=== PATIENT | male | born 1950 | race Caucasian/White ===

== ENCOUNTER → 2017-04-05 13:07 | Outpatient (CLI) | payer MEDICARE, OTHER | END | disposition home or self-care (01) | LOC: D.MRI 04-04 11:00 | DX: M25.572 Pain in left ankle and joints of left foot (principal) ==

== ENCOUNTER → 2017-09-19 07:32 | Outpatient (CLI) | payer MEDICARE, OTHER | END | disposition home or self-care (01) | LOC: D.RAD 07:32 | DX: R13.10 Dysphagia, unspecified (principal) ==

== ENCOUNTER → 2018-07-17 07:59 | Outpatient (CLI) | payer MEDICARE, OTHER | END | disposition home or self-care (01) | LOC: D.HCCARDIO 07:59 | DX: I25.10 Atherosclerotic heart disease of native coronary artery without angina pectoris (principal); Z95.1 Presence of aortocoronary bypass graft ==

== ENCOUNTER 2020-12-25 15:49 | Inpatient (IN) | payer MEDICARE, OTHER ==
[2020-12-25] VITALS (9 sets, daily range): BP systolic 102–163; BP diastolic 51–93
[~2020-12-25] VITALS: Ht 172.7 cm; Wt 76.1 kg
--- NOTE | ~2020-12-25 | HEMODYNAMI ---
PATIENT:CHARLY MCCOLLUM MEDICAL RECORD: [id number] : 52 LOCATION:[facility] D.[address] [facility]# [id number] ADMISSION DATE: 12/26/20 Generatedon:19:27 Patient name: CHARLY MCCOLLUM Patient #: [id number] SSN: [id number] : 1950 Date of study: 12/27/2020 Page: Of Hemodynamic Procedure Report Patient Data Patient Demographics Procedure consent was obtained First Name: CHARLY Gender: Male Last Name: CHUN : 1950 [facility] Initial: J Age: 70 year(s) Patient #: [id number] Race: SSN: [id number] Additional ID: [id number] Contact details [address]: [address] [place] [address] State: [place] City: [place] Zip code: [address] Past Medical History Allergies Allergen Reaction Date Comments Reported Other allergy 12/27/2020 GUAFENESIN, ETODOLAC Admission Admission Data Admission Date: 12/26/2020 Admission Time: 9:14 Arrival Date: 12/27/2020 Arrival Time: 0:00 Admit Source: Other Insurance Payor: Medicare Room #: D.2113 [facility] #: [id number] Height (in.): 68 BSA: 1.86 (m2) Height (cm.): 172.72 BMI: 24.38 (kg/m2) Weight (lbs.): 160.32 Weight (kg.): 72.72 Lab Results Lab Result Date: 12/27/2020 Lab Result Time: 0:00 Biochemistry Name Units Result Min Max BUN mg/dl 10 --(-*--)-- 7 18 CK-MB ng/ml 152.4 --(----)-* 0 3.6 Creatinine mg/dl 0.9 --(-*--)-- 0.6 1.3 eGFR ml/min 88.44020 -*(----)-- 90 120 NONAFRICAN Troponin l ng/ml 23.262 --(----)-* 0 0.06 CBC Name Units Result Min Max Hematocrit % 38.8 *-(----)-- 42 54 Hemoglobin g/dl 13.5 --(*---)-- 13.5 17.5 Procedure Procedure Types Cath Procedure Diagnostic Procedure LHC Coronaries w/Grafts Aortic Root Angiography Sedation Charges Moderate Sedation 40-54 minutes Procedure Description Procedure Date Procedure Date: 12/27/2020 Procedure Start Time: 8:34 Procedure End Time: 9:21 Procedure Staff Name Function Jose M Mon MD Performing Physician Rocco Jimenez RN Nurse Dasha Olea RT Monitor Keisha Valdez RT Scrub Procedure Data Cath Procedure Fluoroscopy Diagnostic fluoroscopy Total fluoroscopy Time: 7.4 time: 7.4 min min Diagnostic fluoroscopy Total fluoroscopy dose: dose: 1417 mGy 1417 mGy Contrast Material Contrast Material Type Amount (ml) Isovue 370 156 Entry Location Entry Primary Successful Side Size Upsize Upsize Entry Closure Succes sful Closure Location (Fr) 1 (Fr) 2 (Fr) Remarks Device Remarks Femoral Right 5 Fr 6 Fr Exoseal artery Short Estimated blood loss: 5 ml Diagnostic catheters Device Type Used For End Catheter Placement MULTIPACK JL 4.0 5Fr Procedure catheter DIAGNOSTIC AR MOD 5Fr Procedure Catheter ([id number]) DIAGNOSTIC LCB 5Fr Procedure catheter ([id number]) DIAGNOSTIC IM 5Fr Procedure catheter ([id number]) MULTIPACK Pigtail 5 Fr Procedure catheter Procedure Complications No complications Procedure Medications Medication Administration Route Dosage 0.9% NaCl I.V. 100 ml/hr Oxygen etCO2 Nasal cannula 2 l/min Heparin Flush Bag added to field 2 bags (1000units/500ml NS) Lidocaine 2% added to field 20 Versed I.V. 2 mg Fentanyl I.V. 50 mcg Fentanyl I.V. 50 mcg Integrilin Drip I.V. drip 5.8 ml/hr (75mg/100ml) Heparin Bolus I.V. 7000 units Hemodynamics Rest BSA: 1.86 (m2) HGB: 13.5 (g/dl) O2 Consumption: Estimated: 232.91 (ml/min) O2 Co nsumption indexed: Estimated:125.22 (ml/min/m) Heart Rate: 95 (bpm) Pressure Samples Time Site Value (mmHg) Purpose Heart Use Rate(bpm) 8:48 LV 110/-2,10 Snapshot 90 Gradients Valve Time Site Site Mean SEP/DFP Peak To Heart Use 1 2 (mmHg) (sec/min) Peak Rate (mmHg) (bpm) Aortic 8:49 LV AO 89 Snapshots Pre Cath Intra NCS Post Cath Vital Signs Time Heart Resp SPO2 etCO2 NIBP (mmHg) Rhythm Pain Sedation Rate (ipm) (%) (mmHg) Status Level (bpm) 8:24:28 94 18 98 32.9 124/87(99) NSR 0 (11) 10(A) , No pain 8:28:34 96 14 96 35.1 119/83(94) NSR 0 (11) 10(A) , No pain 8:32:37 93 13 95 27.6 109/81(93) NSR 0 (11) 10(A) , No pain 8:36:41 95 14 96 25.4 122/73(99) NSR 0 (11) 10(A) , No pain 8:40:49 95 13 96 29.1 116/76(98) NSR 0 (11) 10(A) , No pain 8:44:52 93 13 96 30.6 119/78(97) NSR 0 (11) 10(A) , No pain 8:48:56 87 13 95 35.9 109/84(92) NSR 0 (11) 10(A) , No pain 8:52:58 87 10 94 29.9 109/77(88) NSR 0 (11) 10(A) , No pain 8:57:00 87 10 95 32.8 116/78(94) NSR 0 (11) 10(A) , No pain 9:01:05 88 10 95 31.4 109/76(91) NSR 0 (11) 10(A) , No pain 9:05:05 86 12 96 36.6 117/82(97) NSR 0 (11) 10(A) , No pain 9:09:11 86 29 96 35.1 125/78(93) NSR 0 (11) 10(A) , No pain 9:13:19 86 19 97 30.6 128/81(98) NSR 0 (11) 10(A) , No pain 9:17:26 88 13 98 35.9 125/84(107) NSR 0 (11) 10(A) , No pain 9:21:32 83 14 98 36.7 137/86(111) NSR 0 (11) 10(A) , No pain 9:25:42 82 10 98 36.6 131/86(113) NSR 0 (11) 10(A) , No pain Medications Time Medication Route Dose Verified Delivered Reason Notes Effectiveness by by 8:23:39 0.9% NaCl I.V. 100 Rocco Rocco Per physician ml/hr Tony Jimenez RN RN 8:23:49 Oxygen etCO2 2 Rocco Rocco for low 02 sats Nasal l/min Tony Jimenez cannula RN RN 8:24:00 Heparin Flush added 2 Rocco Rocco used for Bag to bags Tony Jimenez procedure (1000units/500ml field RN RN NS) 8:24:11 Lidocaine 2% added 20ml Rocco Rocco for local to vial Tony Jimenez anesthetic field RN RN 8:31:22 Versed I.V. 2 mg Rocco Rocco for sedation Tony Jimenez RN RN 8:31:55 Fentanyl I.V. 50 Rocco Rocco for sedation mcg Tony Jimenez RN RN 8:46:50 Fentanyl I.V. 50 Rocco Rocco for sedation mcg Tony Jimenez RN RN 9:03:52 Heparin Bolus I.V. 7,000 Rocco Rocco for units Tony Jimenez anticoagulation RN RN 9:24:28 Integrilin Drip I.V. 5.8 Rocco Rocco for (75mg/100ml) drip ml/hr Tony Jimenez antiplatelet RN RN therapy Procedure Log Time Note 7:54:47 Informed consent obtained and on chart 7:55:08 Diagnostic Cath Status : Urgent 7:55:23 Arrival Date: 12/27/2020 12:00:00 AM 7:55:23 Admit Source: Other 7:55:30 Insurance Payor : Medicare 8:00:57 Patient Height : 68 inches 8:01:02 Patient Weight : 160.32 lbs 8:03:16 Lab Result : Troponin l 23.262 ng/ml 8:03:16 Lab Result : Hemoglobin 13.5 g/dl 8:03:16 Lab Result : eGFR NONAFRICAN 88.13493 ml/min 8:03:16 Lab Result : BUN 10 mg/dl 8:03:16 Lab Result : Creatinine 0.9 mg/dl 8:03:16 Lab Result : CK-MB 152.4 ng/ml 8:03:16 Lab Result : Hematocrit 38.8 % 8:03:39 ACC Patient presents with Unstable Angina CCS Anginal Class 2--Slight limitation of ordinary activity. 8:03:42 Procedure Status Urgent Heart Cath (IP). 8:03:44 Time tracking: Regular hours (M-F 7:00 - 5:00) 8:03:49 Plan of Care:Hemodynamics will remain stable., Cardiac rhythm will remain stable., Comfort level will be maintained., Respiratory function will remain adequate., Patient/ family verbilizes understanding of procedure., Procedure tolerated without complication., Recovers from procedure without complications.. 8:03:58 H&P Date Dictated: 12/25/2020 Within 30 days and on chart.. 8:04:01 Family unavailable. 8:04:02 Patient NPO since Midnight. 8:04:30 Patient allergic to Other allergyGUAFENESIN, ETODOLAC 8:04:37 Lab results completed and on chart. 8:04:39 Stress Test: no; N/A . 8:04:41 Alarms reviewed by R. N. 8:04:42 Sharps counted by scrub and verified by R.N. 8:10:34 Rocco Jimenez RN sent for patient. Start room use. 8:15:20 Patient received from Med II to CCL 2 Alert and oriented. Tansferred to table in Supine position. 8:15:20 Warm blankets applied, and antoine hugger turned on for patient comfort. 8:15:21 Correct patient and procedure confirmed by team. 8:15:21 ECG and BP/O2 sat monitors applied to patient. 8:15:22 Full Disclosure recording started 8:15:23 Pre-procedure instructions explained to patient. 8:15:24 Pre-op teaching completed and patient verbalized understanding. 8:15:26 Is the patient allergic to Iodine/contrast media? No. 8:23:22 Vital chart was started 8:23:39 0.9% NaCl 100 ml/hr I.V. was administered by Rocco Jimenez RN; Per physician; Verbal order read back and verified. 8:23:49 Oxygen 2 l/min etCO2 Nasal cannula was administered by Rocco Jimenez RN; for low 02 sats; Verbal order read back and verified. 8:24:00 Heparin Flush Bag (1000units/500ml NS) 2 bags added to field was administered by Rocco Jimenez RN; used for procedure; Verbal order read back and verified. 8:24:11 Lidocaine 2% 20ml vial added to field was administered by Rocco Jimenez RN; for local anesthetic; Verbal order read back and verified. 8:25:45 Baseline sample Acquired. 8:25:52 Rhythm: sinus tachycardia, w/ ST elevation 8:25:57 Was the patient premedicated? Yes 8:26:05 Is patient on blood thinner?Yes 8:26:07 Patient diabetic? Yes. 8:26:08 If diabetic: On Metformin? No 8:26:10 ----Pre-sedation anethsthesia assessment.---- 8:26:13 Previous problem with sedation/anesthesia? No ? 8:26:14 Snore? Yes 8:26:15 Sleep apnea? Unknown 8:26:16 Deviated septum? No 8:26:17 Opens mouth fully? Yes 8:26:18 Sticks out tongue? Yes 8:26:20 Airway obstruction? No ? 8:26:21 Dentures? No ? 8:26:25 Pre procedure: right dorsailis pedis pulse 1+ Palpable, but thready & weak; easily obliterated 8:26:41 ACC The patient was administered the following blood thiners within the last 24 hours: ACCAspirin, ACCHeparin 8:26:46 Patient pain scale 0/10 ?. 8:26:50 IV patent on arrival in left antecubital with 0.9% NaCl at [facility]. 8:26:54 Right groin area was prepped with chlora-prep and draped in sterile fashion 8:26:58 Use device set Femoral Dx 8:27:00 ACIST Syringe (84437) opened to sterile field. 8:27:01 Bag Decanter () opened to sterile field. 8:27:01 Medline Cath Pack ([id number]) opened to sterile field. 8:27:02 ACIST Hand Control (34868) opened to sterile field. 8:27:03 ACIST Manifold (67617) opened to sterile field. 8:27:03 DIAGNOSTIC Multipack 5Fr catheter set ([id number]) opened to sterile field. 8:27:04 SHEATH 5FR [place] (HRZ167) opened to sterile field. 8:27:05 EMERALD Guide Wire (048-653) opened to sterile field. 8:27:06 Tegaderm 4 x 4 (1626W) opened to sterile field. 8:30:43 Final Timeout: patient, procedure, and site verified with staff and physician. All members of the team are in agreement. 8:30:46 Right groin site verified by team. 8:30:50 Fire Safety Assessment: A--An alcohol-based skin anteseptic being used preoperatively., C--Open oxygen or nitrous oxide is being used., D--An ESU, laser, or fiber-optic light is being used. 8:30:53 Physical assessment completed. ASA score P 2 - A patient with mild systemic disease as per Jose M Mon MD. 8:30:56 2) 60-89 Mildly reduced kidney function, and other findings (as for stage 1) point to kidney disease. 8:30:58 Maximum allowable contrast dose (3.7 X eGFR X 0.75)247 ml. 8:31:02 Sedation plan: IV Moderate Sedation Medication:Versed, Fentanyl 8:31:22 Versed 2 mg I.V. was administered by Rocco Jimenez RN; for sedation; Verbal order read back and verified. 8:31:55 Fentanyl 50 mcg I.V. was administered by Rocco Jimenez RN; for sedation; Verbal order read back and verified. 8:34:09 Procedure started. 8:34:25 Local anesthetic to right femoral artery with Lidocaine 2% by Jose M Mon MD.INITIAL ACCESS ONLY 8:36:28 A 5 Fr sheath was inserted into the Right Femoral artery 8:37:41 A MULTIPACK JL 4.0 5Fr catheter was advanced over the wire and used for Procedure. 8:38:03 LCA angiography performed. 8:38:05 Injector settings: Ml/sec: 3, Volume: 6, 8:38:49 Catheter exchanged over wire. 8:39:36 A DIAGNOSTIC AR MOD 5Fr Catheter ([id number]) was advanced over the wire and used for Procedure. 8:40:27 RCA angiography performed. 8:40:29 Injector settings: Ml/sec: 3, Volume: 6, 8:41:47 Catheter exchanged over wire. 8:42:52 A DIAGNOSTIC LCB 5Fr catheter ([id number]) was advanced over the wire and used for Procedure. 8:44:16 SVG to Circ angiography performed. 8:44:20 Injector settings: Ml/sec: 3, Volume: 6, 8:44:21 Catheter exchanged over wire. 8:44:35 A DIAGNOSTIC IM 5Fr catheter ([id number]) was advanced over the wire and used for Procedure. 8:45:59 DENNIS to Diag angiography performed. 8:46:03 Injector settings: Ml/sec: 3, Volume: 6, 8:46:50 Fentanyl 50 mcg I.V. was administered by Rocco Jimenez RN; for sedation; Verbal order read back and verified. 8:47:14 Catheter exchanged over wire. 8:48:32 A MULTIPACK Pigtail 5 Fr catheter was advanced over the wire and used for Procedure. 8:48:45 LV gram done using GOMEZ 8:48:48 Injector settings: Ml/sec: 5, Volume: 15, 8:48:50 LV hemodynamics recorded. 8:48:56 EF : 45 % 8:49:28 Aortic Root visualized 8:49:32 Injector settings: Ml/sec: 10, Volume: 20, 8:51:54 Catheter exchanged over wire. 8:52:21 5 Fr JL 4 guide catheter was inserted over the wire 8:52:57 LCA angiography performed. 8:53:02 Injector settings: Ml/sec: 3, Volume: 6, 9:00:03 Catheter exchanged over wire. 9:00:04 Proceeding to intervention. 9:00:27 Use device set MON PCI 9:00:34 TUBING High Pressure Extension Tubing (Mon) ([id number]) opened to sterile field. 9:00:37 SHEATH 6FR [place] (GSD329) opened to sterile field. 9:01:47 Sheath upsized to a 6 Fr Short. 9:02:38 Pre PCI Site: Vein Graft Circ has 90% stenosis. 9:02:42 ACC Pre-intervention VICTORINO Flow is 2. 9:02:52 GUIDE 6FR AR 2.0 catheter ([id number]) opened to sterile field. 9:02:59 6 Fr AR 2 guide catheter was inserted over the wire 9:03:52 Heparin Bolus 7,000 units I.V. was administered by Rocco Jimenez RN; for anticoagulation; Verbal order read back and verified. 9:06:22 UNABLE TO ENGAGE WITH AR 2 CHANGING CATHETERS. 9:06:30 GUIDE 6FR LCB catheter (LA6LCB) opened to sterile field. 9:06:48 6 Fr LCB guide catheter was inserted over the wire 9:08:48 SVG to LAD angiography performed. 9:14:47 Guide catheter removed. 9:15:39 EXOSEAL 6Fr (EX600) opened to sterile field. 9:17:18 Sheath removed intact; hemostasis achieved with Exoseal to the Right Femoral artery. 9:17:34 Fluoroscopy time 07.40 minutes. 9:17:38 Flurop Dose total: 1417 9:17:38 Fluoroscopy dose: 1417 mGy 9:17:43 Dose Area Product 80993 mGy/cm. 9:17:44 Procedure ended.(Physican Out) 9:18:17 Contrast amount:Isovue 370 156ml. 9:18:22 Maximum allowable dose exceeded? No. 9:18:23 Sharps counted by scrub and verified by R.N. 9:18:27 Post-op/insertion site Right Femoral artery dressed using a 4 x 4 and Tegaderm. 9:18:31 Post right femoral artery:stable, soft, clean and dry 9:18:32 Post Procedure Pulses reassessed and unchanged 9:18:35 Post procedure: right dorsailis pedis pulse 1+ Palpable, but thready & weak; easily obliterated. 9:18:37 Post-procedure physical assessment completed. ASA score P 2 - A patient with mild systemic disease as per Jose M Mon MD. 9:18:41 Post procedure rhythm: unchanged. 9:19:58 Estimated blood loss: 5 ml 9:20:00 Post procedure instruction explained to patient.Patient verbalizes understanding. 9:20:00 Patient needs reinforcement of post procedure teaching. 9:20:56 Procedure type changed to Cath procedure, Diagnostic procedure, LHC, Coronaries w/Grafts, Aortic Root Angiography, Sedation Charges, Moderate Sedation 40-54 minutes 9:21:32 Procedure and supply charges have been captured, reviewed, submitted and are correct. 9:21:35 Procedure Complication : No complications 9:21:39 [facility] Findings: MVD- will discuss options w/ pt 9:21:43 Operative report dictated upon procedure completion. 9:21:44 See physician's report for complete and final results. 9:21:46 Report given to [facility]. 9:21:49 Patient transfered to [facility] with Bed. 9:21:54 Procedure ended. 9:21:54 Full Disclosure recording stopped 9:22:45 End room use (Document Last) 9:24:28 Integrilin Drip (75mg/100ml) 5.8 ml/hr I.V. drip was administered by Rocco Jimenez RN; for antiplatelet therapy; Verbal order read back and verified. 9:26:33 ACT drawn and resulted at 245 seconds. (normal therapeutic range 180-240 seconds). 9:27:10 Vital chart was stopped Device Usage Item Name Manufacture Quantity Catalog Hospital Part Current Minimal L ot# / Number Charge Number Stock Stock Serial# Code ACIST Acist 1 31603 246674 893194 586149 20 Syringe Medical (88477) Systems Inc Bag Microtek 1 2001S 632380 01501 925018 5 Decanter Medical Inc. () Medline Medline 1 [id number] 014389 67770 129333 5 Cath Pack ([id number]) ACIST Hand Acist 1 85494 267724 784316 268248 5 Control Medical (21008) Systems Inc ACIST Acist 1 40189 667421 768542 963331 5 Manifold Medical (28887) Systems Inc DIAGNOSTIC Cardinal 1 XI5476 067301 60040 978382 30 Multipack Health 5Fr catheter set (HU5796) SHEATH 5FR Terumo 1 HQU946 992487 070106 707400 5 [place] (YLH578) EMERALD Cardinal 1 502-455 616886 096872 844690 5 Guide Wire Health (502-455) Tegaderm 4 3M 1 1626W 727911 863853 177914 5 x 4 (1626W) MULTIPACK Cardinal 1 865054 5 JL 4.0 5Fr Health catheter DIAGNOSTIC Cardinal 1 [id number] 970881 409390 527796 15 AR MOD 5Fr Health Catheter (411367V) DIAGNOSTIC Cardinal 1 [id number] 302604 734060 206265 5 LCB 5Fr Health catheter (686092L) DIAGNOSTIC Cardinal 1 206754B 801899 290719 246430 5 IM 5Fr Health catheter (780407D) MULTIPACK Cardinal 1 744985 5 Pigtail 5 Health Fr catheter TUBING High Merit 1 [id number] 369934 65488 106745 10 Pressure Medical Extension Tubing (Mon) (FY2122F) SHEATH 6FR Terumo 1 OPT120 627271 286422 757254 40 [place] (KKE524) GUIDE 6FR Medtronic 1 [id number] 191047 02660 388962 1 AR 2.0 catheter (DA2RT75) GUIDE 6FR Medtronic 1 LA6LCB 841859 88588 398143 1 LCB catheter (LA6LCB) EXOSEAL 6Fr Cardinal 1 EX600 815553 276432 531491 10 (EX600) Health Signature Audit [place] Stage Time Signature Unsigned Intra-Procedure 12/27/2020 Dasha Olea 9:22:57 AM RT(R) Intra-Procedure 12/27/2020 Rocco 9:23:27 AM Tony RN Intra-Procedure 12/27/2020 Jose M Mon MD 9:27:08 AM Signatures Performing Physician : Signature : Jose M Mon MD Date : Time : Nurse : Rocco Jimenez Signature : RN Date : Time : Monitor : Dasha Olea Signature : RT Date : Time : [facility] [address] [address]
[2020-12-25 16:12] LABS: BASOPHILS 0.1 % (0-2); EOSINOPHILS 0.9 % (0-7); HEMATOCRIT 43.5 % (42.0-54.0); HEMOGLOBIN 15.1 g/dL (13.5-17.5); IMMATURE GRANULOCYTES 0.3 % (0-5); LYMPHOCYTE ABS# 5.25 10x3/uL (1.32-3.57); LYMPHOCYTES 32.9 % (15-50); MCH 32.5 pg (26.0-34.0); MCHC 34.7 g/dL (31.0-37.0); MCV 93.8 fL (80.0-100.0); MONOCYTES 8.8 % (2-11); RBC 4.64 10x6/uL (4.20-6.10)
--- NOTE | 2020-12-25 16:15 | NUR ---
EKG COMPLETED. TNG 0.04MG SL GIVEN EVERY 5 MINUTES WITH SOME RELIEF. BP 173/87 ON ARRIVAL. DECREASED TO 103/74 AFTER 3RD TNG. SOB EASING WITH O2 AT 2L/M VIA NC.
[2020-12-25 16:24] LABS: PLATELET COUNT 316 10x3/uL (130-400)
[2020-12-25 16:28] LABS: APTT 25.3 SECONDS (22.8-39.4); INR 1.02 (0.85-1.17); PROTIME 12.4 SECONDS (11.6-15.0)
[2020-12-25 16:36] LABS: CALC OSMOLALITY 282 mosm/kg (275-300); CALCIUM 9.8 mg/dL (8.5-10.1); CARBON DIOXIDE 20.7 mmol/L (21.0-32.0); CHLORIDE - SERUM 100 mmol/L (98-107); GLUCOSE 198 mg/dL (74-106); POTASSIUM - SERUM 3.4 mmol/L (3.5-5.1); SODIUM 138 mmol/L (136-145); UREA NITROGEN 15 mg/dL (7-18); eGFR NON AFRICAN AMERICAN 79 mL/min (90-120)
[2020-12-25 16:54] LABS: ALBUMIN 4.1 g/dL (3.4-5.0); ALKALINE PHOSPHATASE 118 U/L (30-120); ALT (SGPT) 23 U/L (10-68); BILIRUBIN - TOTAL 0.57 mg/dL (0.2-1.3); CKMB 1.1 U/L (0.0-3.6); CREATINE KINASE 55 UL (21-232); MAGNESIUM - SERUM 1.8 mg/dL (1.8-2.4); PROTEIN - SERUM 8.4 g/dL (6.4-8.2)
[2020-12-25 16:55] LABS: TROPONIN-I < 0.017 ng/mL (0.000-0.060)
[2020-12-25] MEDS ORDERED: OMEPRAZOLE40 MG PO (22:39)
[2020-12-25] MEDS ORDERED: AMBIEN5 MG PO (22:40)
[2020-12-25] MEDS ORDERED: HYDROCODONE-AC1 EAC2 PO (22:41)
[2020-12-25] MEDS ORDERED: ACETAMINOPHEN500 M1 PO (22:42)
[2020-12-25 23:12] LABS: CKMB 51.6 U/L (0.0-3.6)
[2020-12-25 23:13] LABS: CREATINE KINASE 311 UL (21-232)
[2020-12-25 23:14] LABS: TROPONIN-I 2.944 ng/mL (0.000-0.060)
--- NOTE | 2020-12-25 23:27 | NUR ---
REPORTED ELEVATED TROPONIN TO PRIMARY NURSE. ANATOMY PROFESSOR TO BE NOTIFIED.
--- NOTE | 2020-12-25 23:58 | NUR ---
SPOKE WITH ABOUT TROP. 2944, NO NEW ORDERS, HE WILL SEE HIM IN AM
[2020-12-26] VITALS (7 sets, daily range): BP systolic 106–169; BP diastolic 67–94; BMI 24.3
[2020-12-26 05:19] LABS: CREATINE KINASE 888 UL (21-232)
[2020-12-26 05:21] LABS: TROPONIN-I 15.923 ng/mL (0.000-0.060)
[2020-12-26 07:07] LABS: BASOPHILS 0.1 % (0-2); EOSINOPHILS 0.8 % (0-7); HEMOGLOBIN 13.4 g/dL (13.5-17.5); IMMATURE GRANULOCYTES 0.3 % (0-5); MCH 32.1 pg (26.0-34.0); MCHC 34.4 g/dL (31.0-37.0); MCV 93.5 fL (80.0-100.0); MEAN PLATELET VOLUME 10.6 fL (7.4-10.4); MONOCYTES 8.6 % (2-11); NEUTROPHIL ABS# 8.69 10x3/uL (1.78-5.38); NEUTROPHILS 76.2 % (40-80); PLATELET COUNT 270 10x3/uL (130-400); RBC 4.17 10x6/uL (4.20-6.10)
[2020-12-26 07:08] LABS: WBC 11.4 10x3/uL (4.8-10.8)
[2020-12-26 07:19] LABS: APTT 27.4 SECONDS (22.8-39.4); INR 1.04 (0.85-1.17); PROTIME 12.5 SECONDS (11.6-15.0)
[2020-12-26 07:39] LABS: ALBUMIN 3.3 g/dL (3.4-5.0); ALKALINE PHOSPHATASE 99 U/L (30-120); BILIRUBIN - TOTAL 0.47 mg/dL (0.2-1.3); CALCIUM 8.8 mg/dL (8.5-10.1); CARBON DIOXIDE 23.5 mmol/L (21.0-32.0); CHLORIDE - SERUM 101 mmol/L (98-107); CHOL - HDL RATIO 3.2 ratio (2.3-4.9); CHOLESTEROL, TOTAL 169 mg/dL (0-200); CREATININE - SERUM 0.8 mg/dL (0.6-1.3); GLUCOSE 183 mg/dL (74-106); HDL CHOLESTEROL 53 mg/dL (32-96); LDL CHOLESTEROL 104 mg/dL (0-100); MAGNESIUM - SERUM 1.8 mg/dL (1.8-2.4); POTASSIUM - SERUM 3.4 mmol/L (3.5-5.1); SODIUM 137 mmol/L (136-145); TRIGLYCERIDE 60 mg/dL (30-200); eGFR NON AFRICAN AMERICAN > 90 mL/min (90-120)
[2020-12-26 07:43] LABS: ALT (SGPT) 34 U/L (10-68); CALC OSMOLALITY 277 mosm/kg (275-300); UREA NITROGEN 9 mg/dL (7-18)
--- NOTE | 2020-12-26 07:51 | NUR ---
WENT TO START HEPARIN DRIP, PT C/O THAT LT AC IV IS HURTING AND THAT IT WILL BE VERY HARD TO KEEP ARM STRAIGHT. STARTED NEW 20G IV TO LT FA X1 STICK. PT REQUESTED TO HAVE LT AV IV TAKING OUT. D/C WITH CATHETER TIP INTACT. 5000 UNITS BOLUS GIVEN, HEPARIN DRIP STARTED TO INFUSE AT 1000UNITS/HR. PT A/O X4, RESP EVEN AND NONLABORED ON 2L NC. SR-90 ON TELE. ALL NEEDS MET, CALL LIGHT IN REACH. WILL CONTINUE PLAN OF CARE.
[2020-12-26 10:34] LABS: CKMB 152.4 U/L (0.0-3.6)
[2020-12-26 10:46] LABS: CREATINE KINASE 975 UL (21-232); TROPONIN-I 23.262 ng/mL (0.000-0.060)
--- NOTE | 2020-12-26 11:02 | NUR ---
TROP NOW 23.2, EKG DONE AND SHOWED SR 79 WITH MARKED SINUS ARRHYTHMIA. OTHERWISE NORMAL EKG. CALLED DR. CORTES AND INFORMED HIM REGARDING ELEVATED TROP. INFORMED HIM THAT PT IS ASYMPTOMATIC, DENIES ANY CHEST PAIN. PER DR. CORTES KEEP PT ON HEPARIN AND HEART CATH IN AM.
--- NOTE | 2020-12-26 11:28 | NUR ---
BLOOD SUGAR OF 262, 6UNITS GIVEN PER S/S. PT DENIES ANY OTHER NEEDS AT THIS TIME. CALL LIGHT, SPOUSE AT BEDSIDE.
--- NOTE | 2020-12-26 13:11 | NUR ---
PT RESTING COMFORTABLY IN BED, DENIES ANY NEEDS AT THIS TIME. CALL LIGHT IN REACH.
--- NOTE | 2020-12-26 19:36 | NUR ---
RECEIVED REPORT, WILL ASSUME CARE OF PT, DENIES ANY NEEDS AT THIS TIME, EXPLAIN HE WILL BE NPO AFTER MIDNIGHT, FOR CATH, AT BEDSIDE, BED IS LOW, SRX2, CALL LIGHT IN REACH, WILL CONTINUE PLAN OF CARE
[2020-12-27 00:48] VITALS: BP 105/77
[2020-12-27 03:02] LABS: BASOPHILS 0.1 % (0-2); EOSINOPHILS 0.9 % (0-7); HEMATOCRIT 38.8 % (42.0-54.0); HEMOGLOBIN 13.5 g/dL (13.5-17.5); IMMATURE GRANULOCYTES 0.1 % (0-5); LYMPHOCYTES 20.7 % (15-50); MCH 32.5 pg (26.0-34.0); MCHC 34.8 g/dL (31.0-37.0); MCV 93.3 fL (80.0-100.0); MEAN PLATELET VOLUME 10.5 fL (7.4-10.4); MONOCYTES 9.9 % (2-11); NEUTROPHILS 68.3 % (40-80); PLATELET COUNT 277 10x3/uL (130-400); RBC 4.16 10x6/uL (4.20-6.10); WBC 9.7 10x3/uL (4.8-10.8)
[2020-12-27 03:21] LABS: ALBUMIN 3.2 g/dL (3.4-5.0); ALKALINE PHOSPHATASE 91 U/L (30-120); ALT (SGPT) 38 U/L (10-68); BILIRUBIN - TOTAL 0.43 mg/dL (0.2-1.3); CALC OSMOLALITY 273 mosm/kg (275-300); CALCIUM 8.8 mg/dL (8.5-10.1); CARBON DIOXIDE 25.5 mmol/L (21.0-32.0); CHLORIDE - SERUM 103 mmol/L (98-107); CHOLESTEROL, TOTAL 167 mg/dL (0-200); CREATININE - SERUM 0.9 mg/dL (0.6-1.3); GLUCOSE 146 mg/dL (74-106); HDL CHOLESTEROL 55 mg/dL (32-96); LDL CHOLESTEROL 96 mg/dL (0-100); LDL-HDL RATIO 1.7 ratio (1.5-3.5); PHOSPHOROUS 3.1 mg/dL (2.5-4.9); POTASSIUM - SERUM 3.4 mmol/L (3.5-5.1); SODIUM 136 mmol/L (136-145); TRIGLYCERIDE 84 mg/dL (30-200); UREA NITROGEN 10 mg/dL (7-18); eGFR NON AFRICAN AMERICAN 89 mL/min (90-120)
[2020-12-27 04:27] VITALS: BP 118/65
[2020-12-27 05:25] VITALS: BP 118/65
--- NOTE | 2020-12-27 07:30 | NUR ---
INITIAL ROUNDS- PT RESTING COMFORTABLY IN BED WITH EYES CLOSED, EASILY AROUSES TO VOICE. PT'S ALSO IN THE BED. PT A/O X4, RESP EVEN AND NONLABORED ON RA. LT FA IV INFUSING HEPARIN AT 1300UNITS/HR. PT DENIES ANY NEEDS AT THIS TIME. CALL LIGHT IN REACH, WILL CONTINUE PLAN OF CARE.
--- NOTE | 2020-12-27 07:59 | NUR ---
PRE-OP MEDS GIVEN AT THIS TIME.
--- NOTE | 2020-12-27 08:21 | NUR ---
PT TO CHOCOLATE PACKER.
[2020-12-27 08:42] VITALS: BP 113/70
--- NOTE | 2020-12-27 09:54 | NUR ---
RECEIVED PT BACK TO ROOM 2112. PT A/O X4. VITAL SIGNS STABLE, PLACED ON FREQUENT VITAL SIGNS. RT GROIN DRESSING CDI, NO S/S OF BLEEDING OR HEMATOMA NOTED. BREAKFAST ORDERED. PT DENIES ANY NEEDS AT THIS TIME. SPOUSE AT BEDSIDE, CALL LIGHT INR EACH.
--- NOTE | 2020-12-27 11:01 | NUR ---
NO CHANGES TO RIGHT GROIN FROM PREVIOUS ASSESSMENT. PT DENIES ANY NEEDS AT THIS TIME. CALL LIGHT IN REACH.
--- NOTE | 2020-12-27 18:58 | NUR ---
RECEIVED CALL FROM DR. CORTES, ORDER TO GIVE 300MG OF PLAVIX ONE TIME DOSE.
--- NOTE | 2020-12-27 20:14 | NUR ---
RECIEVED UP IN BED WITH EYES OPEN. A/O X4. UP AD EUGENE. DSG TO RT GROIN CDI. DENIES ANY NEEDS.
[2020-12-27 21:00] VITALS: BP 1269/77
[2020-12-28] VITALS: BP 125/77
[2020-12-28 04:00] VITALS: BP 121/77
[2020-12-28 04:45] LABS: BASOPHILS 0.3 % (0-2); EOSINOPHILS 1.2 % (0-7); HEMATOCRIT 41.1 % (42.0-54.0); HEMOGLOBIN 13.7 g/dL (13.5-17.5); LYMPHOCYTES 23.1 % (15-50); MCH 31.6 pg (26.0-34.0); MCHC 33.3 g/dL (31.0-37.0); MCV 94.9 fL (80.0-100.0); MEAN PLATELET VOLUME 8.4 fL (7.4-10.4); MONOCYTES 9.5 % (2-11); NEUTROPHILS 65.9 % (40-80); PLATELET COUNT 289 10x3/uL (130-400); RBC 4.33 10x6/uL (4.20-6.10); RDW 13.8 % (11.5-14.5); WBC 9.6 10x3/uL (4.8-10.8)
[2020-12-28 05:11] LABS: ALBUMIN 3.3 g/dL (3.4-5.0); ALKALINE PHOSPHATASE 93 U/L (30-120); ALT (SGPT) 32 U/L (10-68); BILIRUBIN - TOTAL 0.44 mg/dL (0.2-1.3); CALCIUM 9.1 mg/dL (8.5-10.1); CARBON DIOXIDE 23.3 mmol/L (21.0-32.0); CHLORIDE - SERUM 103 mmol/L (98-107); CREATININE - SERUM 0.9 mg/dL (0.6-1.3); GLUCOSE 156 mg/dL (74-106); MAGNESIUM - SERUM 2.2 mg/dL (1.8-2.4); PHOSPHOROUS 3.2 mg/dL (2.5-4.9); POTASSIUM - SERUM 3.9 mmol/L (3.5-5.1); PROTEIN - SERUM 7.2 g/dL (6.4-8.2); SODIUM 137 mmol/L (136-145); eGFR NON AFRICAN AMERICAN 89 mL/min (90-120)
[2020-12-28 05:41] LABS: CALC OSMOLALITY 276 mosm/kg (275-300); UREA NITROGEN 13 mg/dL (7-18)
[2020-12-28 06:11] VITALS: BP 153/103; Ht 172.7 cm; Wt 76.1 kg
[2020-12-28 08:01] VITALS: BP 96/74
--- NOTE | 2020-12-28 08:02 | NUR ---
DR HONG ON THE FLOOR AND NEW ORDERS GIVEN,
[2020-12-28] MEDS ORDERED: ISOSORBIDE MONO30 M1 PO (11:55)
[2020-12-28] MEDS ORDERED: COREG 3.1253.125 MG PO (11:55)
[2020-12-28 12:00] VITALS: BP 115/78
--- NOTE | 2020-12-28 15:56 | NUR ---
ALERT AND ORIENTED X4. SITTING UP IN BED. SPOUSE AT BEDSIDE. DISCHARGE INSTRUCTIONS GIVEN VERBALLY AND WRITTEN. DISCHARGE PAPERS SIGNED ON CHART. ESCORT TO RIDE VIA WHEELCHAIR. REMAINS FREE FROM INJURY.
== END 2020-12-28 16:01 | disposition home or self-care (01) | DRG 282 ==
LOC: D.ER 15:49 → D.M2 17:37 → OBSVTIME 17:37 → D.M2 12-26 09:14
PROVIDERS: Family Medicine; Internal Medicine Cardiovascular Disease; ADMIT Emergency Medicine; ATTEND Emergency Medicine
PROC: B2151ZZ Fluoroscopy of Left Heart using Low Osmolar Contrast (ICD-10-PCS; 2020-12-27)
PROC: 4A023N7 Measurement of Cardiac Sampling and Pressure, Left Heart, Percutaneous Approach (ICD-10-PCS; 2020-12-27)
PROC: B2111ZZ Fluoroscopy of Multiple Coronary Arteries using Low Osmolar Contrast (ICD-10-PCS; principal; 2020-12-27 08:10)
PROC: B2121ZZ Fluoroscopy of Single Coronary Artery Bypass Graft using Low Osmolar Contrast (ICD-10-PCS; 2020-12-27 08:10)
DX: I21.4 Non-ST elevation (NSTEMI) myocardial infarction (principal); I25.10 Atherosclerotic heart disease of native coronary artery without angina pectoris; E11.65 Type 2 diabetes mellitus with hyperglycemia; K21.9 Gastro-esophageal reflux disease without esophagitis; G89.29 Other chronic pain; M54.9 Dorsalgia, unspecified

== ENCOUNTER 2021-01-24 07:49 | Day surgery (SDC) | payer MEDICARE, OTHER ==
[~2021-01-24] VITALS: Ht 172.7 cm; Wt 83.8 kg
--- NOTE | ~2021-01-24 | HEMODYNAMI ---
PATIENT:CHARLY MCCOLLUM MEDICAL RECORD: [id number] : 52 LOCATION:[facility] ADMISSION DATE: 01/24/21 Generatedon:111:45 Patient name: CHARLY MCOCLLUM Patient #: [id number] SSN: [id number] : 1950 Date of study: 01/24/2021 Page: Of Hemodynamic Procedure Report Patient Data Patient Demographics Procedure consent was obtained First Name: CHARLY Gender: Male Last Name: CHUN : 1950 [facility] Initial: J Age: 70 year(s) Patient #: [id number] Race: SSN: [id number] Additional ID: [id number] Contact details Address: [address] [place] [address] State: [place] City: [place] Zip code: [address] Past Medical History Allergies Allergen Reaction Date Comments Reported Other allergy 12/27/2020 GUAFENESIN, ETODOLAC Other allergy 01/24/2021 ROBITUSSIN Admission Admission Data Admission Date: 01/24/2021 Admission Time: 7:49 Height (in.): 67.72 BSA: 1.97 (m2) Height (cm.): 172 BMI: 28.39 (kg/m2) Weight (lbs.): 185.19 Weight (kg.): 84 Lab Results Lab Result Date: 01/24/2021 Lab Result Time: 0:00 Biochemistry Name Units Result Min Max BUN mg/dl 21 --(----)-* 7 18 Creatinine mg/dl 1 --(--*-)-- 0.6 1.3 eGFR ml/min 79.61899 *-(----)-- 90 120 NONAFRICAN CBC Name Units Result Min Max Hematocrit % 39.2 -*(----)-- 42 54 Hemoglobin g/dl 13.1 -*(----)-- 13.5 17.5 Procedure Procedure Types Cath Procedure Diagnostic Procedure LHC LHC w/Coronaries w/Grafts Sedation Charges Moderate Sedation 10-24 minutes Procedure Description Procedure Date Procedure Date: 01/24/2021 Procedure Start Time: 11:13 Procedure End Time: 11:42 Procedure Staff Name Function Jose M Mon MD Performing Physician Nacho Meeks RN Program Evaluation Consultant Margi Mccrary RT Monitor Irvin Neves RN Nurse Javi Wilson RT Scrub Procedure Data Cath Procedure Fluoroscopy Diagnostic fluoroscopy Total fluoroscopy Time: 9.2 time: 9.2 min min Diagnostic fluoroscopy Total fluoroscopy dose: 769 dose: 769 mGy mGy Contrast Material Contrast Material Type Amount (ml) Isovue 300 105 Entry Location Entry Primary Successful Side Size Upsize Upsize Entry Closure Succes sful Closure Location (Fr) 1 (Fr) 2 (Fr) Remarks Device Remarks Femoral Right 5 Fr Exoseal artery Estimated blood loss: 5 ml Diagnostic catheters Device Type Used For End Catheter Placement MULTIPACK JL 4.0 5Fr Procedure catheter DIAGNOSTIC JL 5 5Fr Procedure catheter ([id number]) MULTIPACK 3DRC 5Fr Procedure catheter DIAGNOSTIC LCB 5Fr Procedure catheter ([id number]) DIAGNOSTIC AR2 MOD 5 Fr Procedure catheter ([id number]) DIAGNOSTIC LCB 5Fr Procedure catheter (521474K) DIAGNOSTIC AL2 5Fr Procedure catheter (524846N) DIAGNOSTIC IM 5Fr Procedure catheter ([id number]) MULTIPACK Pigtail 5 Fr Procedure catheter Procedure Complications No complications Procedure Medications Medication Administration Route Dosage 0.9% NaCl I.V. 100 ml/hr Oxygen etCO2 Nasal cannula 2 l/min Heparin Flush Bag added to field 2 bags (1000units/500ml NS) Lidocaine 2% added to field 20 Versed I.V. 1 mg Fentanyl I.V. 50 mcg Versed I.V. 0.5 mg Fentanyl I.V. 25 mcg Hemodynamics Rest BSA: 1.97 (m2) HGB: 13.1 (g/dl) O2 Consumption: Estimated: 230.51 (ml/min) O2 Co nsumption indexed: Estimated:117.01 (ml/min/m) Heart Rate: 73 (bpm) Pressure Samples Time Site Value (mmHg) Purpose Heart Use Rate(bpm) 11:38 LV 139/-1,24 Snapshot 72 11:38 LV 144/0,27 Snapshot 72 11:38 AO 141/71(99) Pullback 73 Gradients Valve Time Site Site 2 Mean SEP/DFP Peak To Heart Use 1 (mmHg) (sec/min) Peak Rate (mmHg) (bpm) Aortic 11:38 LV AO 7 7 73 141/71(99) Calculations Valve P-P Mean Valve Index Valve Source Name Gradient Area Flow (cm2) Aortic 7 7 Snapshots Pre Cath Intra NCS Post Cath Vital Signs Time Heart Resp SPO2 etCO2 NIBP (mmHg) Rhythm Pain Sedation Rate (ipm) (%) (mmHg) Status Level (bpm) 11:03:59 76 38 100 0 153/92(127) NSR 0 (11) 10(A) , No pain 11:08:19 74 13 100 33 151/89(130) NSR 0 (11) 10(A) , No pain 11:12:35 70 12 96 27 139/77(117) NSR 0 (11) 10(A) , No pain 11:16:53 72 12 97 28.5 136/75(112) NSR 0 (11) 9(A) , No pain 11:21:09 73 11 97 26.2 141/77(116) NSR 0 (11) 9(A) , No pain 11:25:25 73 12 98 30.7 138/82(118) NSR 0 (11) 9(A) , No pain 11:29:45 73 9 99 27 130/70(111) NSR 0 (11) 9(A) , No pain 11:33:59 72 9 100 34.5 142/76(110) NSR 0 (11) 9(A) , No pain 11:38:15 146 8 99 34.5 134/85(115) NSR 0 (11) 9(A) , No pain 11:42:27 70 9 100 33.7 150/88(129) NSR 0 (11) 10(A) , No pain Medications Time Medication Route Dose Verified Delivered Reason Notes Eff ectiveness by by 11:08:00 0.9% NaCl I.V. 100 Jose M Irvin used for ml/hr Elieser Neves [employer] 11:08:09 Oxygen etCO2 2 Jose M Irvin used for Nasal l/min [employer]ieser Neves [employer] cannula 11:08:20 Heparin Flush added 2 Jose M Jose M used for Bag to bags Elieser Mon MD procedure (1000units/500ml field NS) 11:08:29 Lidocaine 2% added 20ml Jose M Jose M for local to vial Elieser Mon MD anesthetic field 11:10:13 Versed I.V. 1 mg Jose M Irvin for Elieser Neves RN sedation 11:10:20 Fentanyl I.V. 50 Jose M Irvin for mcg Elieser Neves RN sedation 11:14:32 Versed I.V. 0.5 Jose M Irvin for mg Elieser Neves RN sedation 11:14:36 Fentanyl I.V. 25 Jose M Irvin for giuseppe Neves RN sedation Procedure Log Time Note 10:51:10 Informed consent obtained and on chart 10:52:48 Procedure Status Elective Heart Cath (OP). 10:52:51 Nacho Meeks RN sent for patient. Start room use. 10:52:53 Time tracking: Regular hours (M-F 7:00 - 5:00) 10:52:57 Plan of Care:Hemodynamics will remain stable., Cardiac rhythm will remain stable., Comfort level will be maintained., Respiratory function will remain adequate., Patient/ family verbilizes understanding of procedure., Procedure tolerated without complication., Recovers from procedure without complications.. 10:57:47 H&P Date Dictated: 01/19/2021 Within 30 days and on chart., H&P Addendum completed by physician on day of procedure. (MUST COMPLETE FOR ALL OUTPATIENTS). 10:58:01 Patient allergic to Other allergyROBITUSSIN 10:58:08 Patient received from Pre/Post Procedure Room to CCL 1 Alert and oriented. Tansferred to table in Supine position. 10:58:09 Warm blankets applied, and antoine hugger turned on for patient comfort. 10:58:10 Correct patient and procedure confirmed by team. 10:58:10 ECG and BP/O2 sat monitors applied to patient. 11:02:50 Vital chart was started 11:02:57 Baseline sample Acquired. 11:04:05 Full Disclosure recording started 11:04:06 Pre-procedure instructions explained to patient. 11:04:06 Pre-op teaching completed and patient verbalized understanding. 11:04:07 Family in patients room. 11:04:08 Patient NPO since Midnight. 11:04:23 Is the patient allergic to Iodine/contrast media? No. 11:04:25 Is patient on blood thinner?No 11:04:26 Patient diabetic? Yes. 11:04:28 If diabetic: On Metformin? Yes 11:04:32 If on Metformin: Last Dose? 01/22/2021 11:04:37 Previous problem with sedation/anesthesia? No ? 11:04:38 Snore? Yes 11:04:39 Sleep apnea? No 11:04:40 Deviated septum? No 11:04:41 Opens mouth fully? Yes 11:04:41 Sticks out tongue? Yes 11:04:43 Airway obstruction? No ? 11:04:54 Dentures? Yes PERMENENT BRIDGE 11:04:58 Pre procedure: right dorsailis pedis pulse 1+ Palpable, but thready & weak; easily obliterated 11:05:02 Patient pain scale 0/10 ?. 11:05:08 IV patent on arrival in right forearm with 0.9% NaCl at [facility]. 11:: Lab Result : BUN 21 mg/dl 11:: Lab Result : Creatinine 1 mg/dl 11:: Lab Result : eGFR NONAFRICAN 79.61790 ml/min 11:: Lab Result : Hemoglobin 13.1 g/dl :: Lab Result : Hematocrit 39.2 % 11::29 Lab results completed and on chart. 11:07:32 Right groin area was prepped with chlora-prep and draped in sterile fashion 11:07:33 Alarms reviewed by R. N. 11:07:33 Sharps counted by scrub and verified by R.N. 11:07:43 Patient Weight : 185.19 lbs 11:07:45 Patient Height : 67.72 inches 11:08:00 0.9% NaCl 100 ml/hr I.V. was administered by Irvin Neves RN; used for procedure; Verbal order read back and verified. 11:08:09 Oxygen 2 l/min etCO2 Nasal cannula was administered by Irvin Neves RN; used for procedure; Verbal order read back and verified. 11:08:20 Heparin Flush Bag (1000units/500ml NS) 2 bags added to field was administered by Jose M Mon MD; used for procedure; Verbal order read back and verified. 11:08:29 Lidocaine 2% 20ml vial added to field was administered by Jose M Mon MD; for local anesthetic; Verbal order read back and verified. 11:09:25 --------ALL STOP TIME OUT------ : Final Timeout: patient, procedure, and site verified with staff and physician. All members of the team are in agreement. 11:09:33 Right groin site verified by team. 11:09:36 Fire Safety Assessment: A--An alcohol-based skin anteseptic being used preoperatively., C--Open oxygen or nitrous oxide is being used., D--An ESU, laser, or fiber-optic light is being used. 11:09:38 Physical assessment completed. ASA score P 2 - A patient with mild systemic disease as per Jose M Mon MD. 11:09:40 2) 60-89 Mildly reduced kidney function, and other findings (as for stage 1) point to kidney disease. 11:09:41 Maximum allowable contrast dose (3.7 X eGFR X 0.75)219 ml. 11:09:45 Sedation plan: IV Moderate Sedation Medication:Versed, Fentanyl 11:10:13 Versed 1 mg I.V. was administered by Irvin Neves RN; for sedation; Verbal order read back and verified. 11:10:16 Zero performed for pressure channel P1 11:10:20 Fentanyl 50 mcg I.V. was administered by Irvin Neves RN; for sedation; Verbal order read back and verified. 11:10:45 Use device set Femoral Dx 11:10:53 ACIST Syringe (09700) opened to sterile field. 11:10:54 Bag Decanter (2002S) opened to sterile field. 11:10:55 ACIST Hand Control (80823) opened to sterile field. 11:10:55 ACIST Manifold (54312) opened to sterile field. 11:10:58 Tegaderm 4 x 4 (1626W) opened to sterile field. 11:10:59 Medline Cath Pack ([id number]) opened to sterile field. 11:11:00 DIAGNOSTIC Multipack 5Fr catheter set (NG5642) opened to sterile field. 11:11:01 EMERALD Guide Wire (502-498) opened to sterile field. 11:11:01 SHEATH 5FR Douglass (HOD688) opened to sterile field. 11:12:59 Procedure started. 11:13:25 Local anesthetic to right femoral artery with Lidocaine 2% by Jose M Mon MD.INITIAL ACCESS ONLY 11:14:32 Versed 0.5 mg I.V. was administered by Irvin Neves RN; for sedation; Verbal order read back and verified. 11:14:36 Fentanyl 25 mcg I.V. was administered by Irvin Neves RN; for sedation; Verbal order read back and verified. 11:14:40 A 5 Fr sheath was inserted into the Right Femoral artery 11:15:12 A MULTIPACK JL 4.0 5Fr catheter was advanced over the wire and used for Procedure. 11:16:42 Catheter exchanged over wire. 11:16:51 A DIAGNOSTIC JL 5 5Fr catheter ([id number]) was advanced over the wire and used for Procedure. 11:18:33 LCA angiography performed. 11:18:35 Catheter exchanged over wire. 11:19:00 A MULTIPACK 3DRC 5Fr catheter was advanced over the wire and used for Procedure. 11:19:56 RCA angiography performed. 11:20:03 Catheter exchanged over wire. 11:20:19 A DIAGNOSTIC LCB 5Fr catheter ([id number]) was advanced over the wire and used for Procedure. 11:22:11 Catheter exchanged over wire. 11:23:00 A DIAGNOSTIC AR2 MOD 5 Fr catheter ([id number]) was advanced over the wire and used for Procedure. 11:23:25 SVG to Diag angiography performed. 11:29:29 Catheter exchanged over wire. 11:30:16 A DIAGNOSTIC LCB 5Fr catheter ([id number]) was advanced over the wire and used for Procedure. 11:31:12 Catheter exchanged over wire. 11:31:29 A DIAGNOSTIC AL2 5Fr catheter ([id number]) was advanced over the wire and used for Procedure. 11:33:16 SVG to Circ angiography performed. 11:33:17 Catheter exchanged over wire. 11:33:22 A DIAGNOSTIC IM 5Fr catheter ([id number]) was advanced over the wire and used for Procedure. 11:35:07 DENNIS to LAD angiography performed. 11:35:11 Catheter exchanged over wire. 11:37:38 A MULTIPACK Pigtail 5 Fr catheter was advanced over the wire and used for Procedure. 11:37:45 LV gram done using GOMEZ 11:37:47 Injector settings: Ml/sec: 10, Volume: 20, 11:38:10 LV hemodynamics recorded. 11:38:22 EF : 55 % 11:38:35 Catheter removed. 11:38:38 EXOSEAL 5Fr (EX500) opened to sterile field. 11:39:38 Sheath removed intact; hemostasis achieved with Exoseal to the Right Femoral artery. 11:39:49 Procedure ended.(Physican Out) 11:40:36 Fluoroscopy time 09.20 minutes. 11:40:39 Flurop Dose total: 769 11:40:39 Fluoroscopy dose: 769 mGy 11:40:45 Dose Area Product 85887 mGy/cm. 11:40:49 Contrast amount:Isovue 300 105ml. 11:40:52 Maximum allowable dose exceeded? No. 11:40:53 Sharps counted by scrub and verified by R.N. 11:40:55 Post-op/insertion site Right Femoral artery dressed using a 4 x 4 and Tegaderm. 11:40:59 Post-procedure physical assessment completed. ASA score P 2 - A patient with mild systemic disease as per Jose M Mon MD. 11:41:01 Post procedure rhythm: sinus rhythm 11:41:10 Estimated blood loss: 5 ml 11:41:21 Post procedure instruction explained to patient.Patient verbalizes understanding. 11:41:22 Patient needs reinforcement of post procedure teaching. 11:41:46 Procedure type changed to Cath procedure, Diagnostic procedure, LHC, LHC w/Coronaries w/Grafts, Sedation Charges, Moderate Sedation 10-24 minutes 11:42:18 Procedure and supply charges have been captured, reviewed, submitted and are correct. 11:42:20 Procedure Complication : No complications 11:42:23 Vital chart was stopped 11:42:24 [facility] Findings: mild to moderate CAD (<70%) 11:42:30 Operative report dictated upon procedure completion. 11:42:30 See physician's report for complete and final results. 11:42:33 Report given to Pre/Post Procedure Room. 11:42:35 Patient transfered to Pre/Post Procedure Room with Bed. 11:42:38 Procedure ended. 11:42:38 Full Disclosure recording stopped 11:42:43 End room use (Document Last) Device Usage Item Name Manufacture Quantity Catalog Hospital Part Current Minimal L ot# / Number Charge Number Stock Stock Serial# Code [facility] 1 78965 [id number] 886703 010520 20 TaKaDu (03089) Systems Inc Bag Microtek 1 162046 13077 130677 5 Decanter Medical Inc. (2001S) ACIST Hand Acist 1 83047 493127 840147 285762 5 Control Medical (89939) Systems Inc ACIST Acist 1 43030 360505 216583 450445 5 Manifold Medical (95606) Systems Inc Tegaderm 4 3M 1 1626W 336757 184894 122592 5 x 4 (1626W) Medline Medline 1 [id number] 280661 64276 469202 5 Cath Pack ([id number]) DIAGNOSTIC Cardinal 1 TP2411 032582 14186 535077 30 Multipack Health 5Fr catheter set (LC5035) EMERALD Cardinal 1 502-455 561962 967882 181930 5 Guide Wire Health (502-455) SHEATH 5FR Terumo 1 EZK941 826670 694047 220949 5 Douglass (STA776) MULTIPACK Cardinal 1 094151 5 JL 4.0 5Fr Health catheter DIAGNOSTIC Cardinal 1 155386A 286372 120945 799509 5 JL 5 5Fr Health catheter (761775R) MULTIPACK Cardinal 1 444088 5 3DRC 5Fr Health catheter DIAGNOSTIC Cardinal 1 [id number] 282084 155613 592398 5 LCB 5Fr Health catheter (273151J) DIAGNOSTIC Cardinal 1 [id number] 576575 789543 240723 20 AR2 MOD 5 Health Fr catheter (758614K) DIAGNOSTIC Cardinal 1 005493Z 660353 088273 589967 15 AL2 5Fr Health catheter (563860P) DIAGNOSTIC Cardinal 1 710026H 682292 982751 920870 5 IM 5Fr Health catheter (984068T) MULTIPACK Cardinal 1 817120 5 Pigtail 5 Health Fr catheter EXOSEAL 5Fr Cardinal 1 EX500 979207 092745 106932 10 (EX500) Health Signature Audit [place] Stage Time Signature Unsigned Intra-Procedure 01/24/2021 Margi Mccrary 11:44:12 AM RT(R) Intra-Procedure 01/24/2021 Irvin Neves RN 11:44:46 AM Intra-Procedure 01/24/2021 Jose M Mon MD 11:45:[address] [id number]
[~2021-01-24 07:49] MED LIST: ACETAMINOPHEN500 M1 PO; AMBIEN5 MG PO; COREG 3.1253.125 MG PO; HYDROCODONE-AC1 EAC2 PO; ISOSORBIDE MONO30 M1 PO; OMEPRAZOLE40 MG PO
[2021-01-24] MEDS ORDERED: NAPROSYN500 MG PO (08:59)
[2021-01-24] MEDS ORDERED: GLUCOPHAGE500 MG PO ×2 (09:01→09:51)
[2021-01-24 09:11] VITALS: BP 129/73; Ht 172.7 cm; Wt 83.8 kg
[2021-01-24 09:13] LABS: BASOPHILS 0.5 % (0-2); EOSINOPHILS 2.7 % (0-7); HEMATOCRIT 39.2 % (42.0-54.0); HEMOGLOBIN 13.1 g/dL (13.5-17.5); LYMPHOCYTES 20.7 % (15-50); MCH 31.9 pg (26.0-34.0); MCHC 33.5 g/dL (31.0-37.0); MCV 95.2 fL (80.0-100.0); MEAN PLATELET VOLUME 8.7 fL (7.4-10.4); NEUTROPHILS 65.1 % (40-80); RBC 4.12 10x6/uL (4.20-6.10); RDW 14.4 % (11.5-14.5); WBC 7.1 10x3/uL (4.8-10.8)
[2021-01-24 09:22] LABS: PLATELET COUNT 218 10x3/uL (130-400)
[2021-01-24 09:25] LABS: ALT (SGPT) 23 U/L (10-68); CALC OSMOLALITY 292 mosm/kg (275-300); CALCIUM 8.6 mg/dL (8.5-10.1); CARBON DIOXIDE 26.4 mmol/L (21.0-32.0); CHLORIDE - SERUM 109 mmol/L (98-107); CHOL - HDL RATIO 2.7 ratio (2.3-4.9); CHOLESTEROL, TOTAL 147 mg/dL (0-200); GLUCOSE 155 mg/dL (74-106); HDL CHOLESTEROL 54 mg/dL (32-96); LDL CHOLESTEROL 84 mg/dL (0-100); LDL-HDL RATIO 1.6 ratio (1.5-3.5); POTASSIUM - SERUM 3.9 mmol/L (3.5-5.1); SODIUM 144 mmol/L (136-145); TRIGLYCERIDE 47 mg/dL (30-200); UREA NITROGEN 21 mg/dL (7-18); eGFR NON AFRICAN AMERICAN 79 mL/min (90-120)
--- NOTE | 2021-01-24 11:50 | NUR ---
PT REC'D TO CATH RECOVERY ROOM 10 VIA STRETCHER. MONITORS ESTAB. NO FAMILY AT BS AT THIS TIME. SEE BURNING SUPERVISOR FLOWSHEETS. ALARMS ON AND C/L IN REACH.
--- NOTE | 2021-01-24 12:05 | NUR ---
R GROIN EXOSEAL SITE SOFT, NO S/S BLEEDING OR HEMATOMA. R LEG/FOOT WARM WITH PALP PULSES AND BRISK CAP REFILL. PT RESTING QUIETLY, DENIES PAIN OR NEEDS. VSS. ALARMS ON AND C/L IN REACH.
--- NOTE | 2021-01-24 12:35 | NUR ---
R GROIN SITE SOFT, NO S/S BLEEDING OR HEMATOMA. R LEG/FOOT WARM WITH PALP PULSES AND BRISK CAP REFILL. PT DENIES PAIN OR NEEDS. VSS. AT BS. ALARMS ON AND C/L IN REACH.
--- NOTE | 2021-01-24 12:50 | NUR ---
R GROIN SITE SOFT, NO S/S BLEEDING OR HEMATOMA. PULSES PALP. VSS.
--- NOTE | 2021-01-24 13:06 | NUR ---
R GROIN SITE SOFT, NO S/S BLEEDING OR HEMATOMA. PULSES PALP. HOB ELEVATED. PT REFUSES SANDWICH OR DRINK AT THIS TIME. AT BS. ALARMS ON AND C/L IN REACH.
--- NOTE | 2021-01-24 13:15 | NUR ---
DR. CORTES IN TO SEE PT - SPOKE WITH HIM AND HIS , QUESTIONS ANSWERED.
[2021-01-24] MEDS ORDERED: ZOCOR20 MG PO (13:20)
--- NOTE | 2021-01-24 13:30 | NUR ---
R GROIN SITE SOFT, NO S/S BLEEDING OR HEMATOMA. PULSES PALP. VSS. PT DENIES PAIN OR NEEDS.
--- NOTE | 2021-01-24 13:45 | NUR ---
R GROIN SITE SOFT, NO S/S BLEEDING OR HEMATOMA. PULSES PALP. PIV D/C'D INTACT. DSG APPLIED. PT ALLOWED UP TO GET DRESSED AND GO TO BR INDEPENDENTLY.
--- NOTE | 2021-01-24 13:58 | NUR ---
ALL DISCHARGE INSTRUCTIONS REVIEWED WITH PT AND HIS , INCLUDING RESTRICTIONS, MEDS, AND F/U APPT. [facility] HAS BEEN CALLED IN TO [facility] PER PT REQUEST. BOTH VERBALIZE UNDERSTANDING.
--- NOTE | 2021-01-24 14:00 | NUR ---
PT D/C'D VIA WC TO PRIVATE VEHICLE WITH ALL PAPERWORK AND BELONGINGS.
== END 2021-01-24 14:00 | disposition home or self-care (01) ==
LOC: D.CATH 07:49
PROVIDERS: ATTEND Internal Medicine Cardiovascular Disease
DX: I25.110 Atherosclerotic heart disease of native coronary artery with unstable angina pectoris (principal)